=== PATIENT | female | born 1975 | race Hispanic/Latino ===

== ENCOUNTER → 2019-05-25 | Outpatient (CLI) | payer OTHER ==
[~2019-05-25] MED LIST: LEVO75TA10 PO
== END | disposition home or self-care (01) ==
LOC: RAH 16:11
PROVIDERS: ATTEND Internal Medicine
DX: M53.3 Sacrococcygeal disorders, not elsewhere classified (principal); K59.00 Constipation, unspecified
CPT/HCPCS: 72100; 73502

== ENCOUNTER 2020-08-03 16:37 | Observation (INO) | payer OTHER ==
[~2020-08-03] VITALS: Ht 167.6 cm; Wt 77.6 kg
[2020-08-03 17:39] VITALS: BP 113/64
== END 2020-08-03 18:17 | disposition home or self-care (01) ==
LOC: LDH 16:37
PROVIDERS: ADMIT Obstetrics & Gynecology; ATTEND Obstetrics & Gynecology
DX: O36.8130 Decreased fetal movements, third trimester, not applicable or unspecified (principal); Z3A.30 30 weeks gestation of pregnancy
CPT/HCPCS: 59025; 76819; G0378